=== PATIENT | female | born 1970 | race Caucasian/White ===

== ENCOUNTER → 2016-12-08 | Outpatient (CLI) | payer MEDICAID ==
[~2016-12-08] MED LIST: ARIP1TAB7 PO; DICL75TA PO; DIPH25TA2 PO; LAMI200T PO; TRAZ100T4 PO
[2016-12-08 11:45] LABS: AUTOMATED NEUTROPHIL # 3.7 TH/MM3 (1.8-7.7); BASOPHIL % 0.4 % (0.0-2.0); EOSINOPHIL # 0.2 TH/MM3 (0-0.4); HEMATOCRIT 42.6 % (35.0-46.0); HEMO FLAGS DIFF FINAL; LYMPHOCYTE # 1.8 TH/MM3 (1.0-4.8); MEAN CELL VOLUME 88.6 FL (80.0-100.0); MEAN CORPUSCULAR HEMOGLOBIN 29.8 PG (27.0-34.0); MEAN CORPUSCULAR HGB CONC 33.6 % (32.0-36.0); MONO % 6.3 % (0.0-8.0); NEUT % 60.3 % (16.0-70.0); PLATELET COUNT 156 TH/MM3 (150-450); RED CELL DISTRIBUTION WIDTH 12.3 % (11.6-17.2); WHITE BLOOD COUNT 6.1 TH/MM3 (4.0-11.0)
== END ==
LOC: PHPRE 11:25
PROVIDERS: ATTEND Orthopaedic Surgery
DX: Z01.818 Encounter for other preprocedural examination (principal)
CPT/HCPCS: 36415; 85025

== ENCOUNTER → 2016-12-16 | Day surgery (SDC) | payer MEDICAID ==
[~2016-12-16] VITALS: Ht 170.2 cm; Wt 122.5 kg
[~2016-12-16] MED LIST changes: +ACETAMINOPHEN/HYDROcodone 325 MG/5 MG TAB ONE; -ARIP1TAB7 PO; +BUPIVACAINE/EPINEPHRINE 0.5% PF 30 ML VIAL ONE; +CHLORHEXIDINE GLUCONATE 4% SOLN 120 ML BTL TOPICAL SCH; -DICL75TA PO; +FAMOTIDINE 20 MG/2 ML VIAL ONE; +LACTATED RINGER'S 1000 ML INJ 1,000 ML ONE; -LAMI200T PO; +METOCLOPRAMIDE HCL 10 MG/2 ML VIAL ONE; +MIDAZOLAM HCL 2 MG/2 ML VIAL ONE; +ONDANSETRON HCL 4 MG/2 ML VIAL IV PUSH ONE; +PROPOFOL 200 MG/20 ML AMP IV ONE; -TRAZ100T4 PO; +TRIAMCINOLONE ACETONIDE 40 MG/ML VIAL ONE
[2016-12-16 09:07] VITALS: BP 121/78; PULSE 74; RESP 16; TEMP 97.8; O2SAT 97
[2016-12-16 12:45] VITALS: BP 107/64; PULSE 62; RESP 16; TEMP 98; O2SAT 100
--- NOTE | 2016-12-18 10:57 | MP ---
cc: ENDY STOVER M.D. DATE OF SURGERY: 12/16/2016 SURGEON: Dr. Endy Stover PREOPERATIVE DIAGNOSIS Tear medial meniscus left knee joint. POSTOPERATIVE DIAGNOSIS Tear medial meniscus and lateral meniscus, osteoarthritis medial compartment. PROCEDURE Arthroscopic debridement and chondroplasty of the medial femoral condyle and subtotal medial and lateral meniscectomy. DETAILS OF PROCEDURE: The patient was placed on the operating table in supine position. Adequate general anesthesia was administered by the anesthesiologist. The patient's left knee was prepped and draped in the usual sterile fashion. An Esmarch bandage was utilized to exsanguinate the left lower extremity after a time-out was called. An anterolateral portal was used for introduction of the inflow cannula and scope. The joint was distended with lactated Ringer's solution. A systematic examination of the knee joint revealed suprapatellar pouch and patellofemoral joint unremarkable except for minimal degenerative changes. We did evacuate a few cc of serosanguineous fluid prior to the procedure. The intercondylar fossa revealed intact cruciate ligaments. The medial meniscus showed a radial tear at the junction between the middle and posterior third, and this was approached through an anteromedial portal with a motorized shaver and this area was excised. A medial femoral condylar superficial erosion was present and this was also removed by chondroplasty utilizing the motorized instrument. The lateral compartment was entered and did reveal fraying of the edge of the lateral meniscus over the entire middle one-third and this was excised with the motorized instrument. A thorough irrigation of the joint was carried out and all fluid was removed. The instruments were removed and the two stab wounds closed with simple 3-0 nylon. An intra-articular injection of 10 cc and 0.5% Marcaine with epinephrine was instilled through the lateral portal. Xeroform gauze was applied over both wounds and a bulky compression dressing applied around the knee joint. The tourniquet was deflated after 10 minutes. Sponge count, needle count and instrument counts were reported correct x2. The estimated blood loss was nil. The procedure was tolerated well and without complications. The patient was transferred to the recovery room in satisfactory condition. Endy Stover MD [facility] /10:57 AM /10:50 AM
== END | disposition home or self-care (01) ==
LOC: PHSDC 08:48
PROVIDERS: ATTEND Orthopaedic Surgery
DX: M23.232 Derangement of other medial meniscus due to old tear or injury, left knee (principal); M23.262 Derangement of other lateral meniscus due to old tear or injury, left knee; M17.0 Bilateral primary osteoarthritis of knee
CPT/HCPCS: 01400; 29880; E0113; J2250; J2405; J2765; J3010; J7120; J3301